=== PATIENT | female | born 1990 | race Caucasian/White ===

== ENCOUNTER 2016-04-24 16:24 | Emergency (ER) | payer OTHER ==
[2016-04-24 18:25] LABS: HEMOGLOBIN 15.1 gm/dl (12.3-15.3); RED BLOOD COUNT 5.08 M/UL (4.00-5.10)
[2016-04-24 18:51] LABS: BUN/CREATININE RATIO 14 (0-10)
== END 2016-04-24 19:50 | disposition home or self-care (01) ==
LOC: ER1 16:24
PROVIDERS: Physician Assistant Medical
DX: M25.562 Pain in left knee (principal); R07.9 Chest pain, unspecified; F17.210 Nicotine dependence, cigarettes, uncomplicated
CPT/HCPCS: 36415; 71020; 73564; 80053; 81001; 84484; 84703; 85025; 85379; 93005; 99284